=== PATIENT | female | born 1980 | race Caucasian/White ===

== ENCOUNTER 2016-04-16 13:20 | Outpatient (CLI) | payer OTHER ==
[~2016-04-16 13:20] MED LIST: PRENTAB26 PO
[2016-06-15] MEDS ORDERED: MTR600X PO (07:36)
== END 2016-04-16 14:05 | disposition home or self-care (01) ==
LOC: C.OPB 13:20 → C.LD 13:20 → C.OPB 14:05
PROVIDERS: ATTEND Obstetrics & Gynecology
DX: O99.89 Other specified diseases and conditions complicating pregnancy, childbirth and the puerperium (principal); R10.9 Unspecified abdominal pain; Z3A.32 32 weeks gestation of pregnancy

== ENCOUNTER → 2016-05-25 | Outpatient (CLI) | payer OTHER ==
[~2016-05-25] MED LIST changes: +CHOL100027 PO; +DOCU-94 PO; +MTR600X PO
== END | disposition home or self-care (01) ==
LOC: C.LAB 10:57
PROVIDERS: ATTEND Obstetrics & Gynecology
DX: Z01.812 Encounter for preprocedural laboratory examination (principal)

== ENCOUNTER → 2016-05-25 | Outpatient (CLI) | payer OTHER ==
[2016-05-25 12:11] LABS: BASO % 0.3 %; BASO ABS # 0.04 K/uL (0-0.2); COMPLETE YES; EOS % 0.7 %; HEMATOCRIT 37.4 % (37-47); IG% 2.7 %; LYMPH % 14.4 %; LYMPH ABS # 1.95 K/uL (1.2-3.4); MEAN CELL VOLUME 86.8 fL (80-100); MEAN CORPUSCULAR HEMOGLOBIN 30.9 pg (25-34); MEAN CORPUSCULAR HGB CONC 35.6 g/dl (32-36); MEAN PLATELET VOLUME 11.2 fL (7.4-10.4); MONO % 6.5 %; NEUT % 75.4 %; PLATELET COUNT 178 K/uL (130-400); RED BLOOD COUNT 4.31 M/uL (4.2-5.4); WHITE BLOOD COUNT 13.54 K/uL (4.8-10.8)
--- NOTE | 2016-08-12 07:19 | CODING QUERY NO DIAGNOSIS ---
TREATMENT RENDERED WITHOUT A DIAGNOSIS To promote full compliance with coding requirements relating to patient care, physician participation is requested in all cases of geometry professor uncertainty. Please assist us with providing a diagnosis/symptom for the test(s) below: A diagnosis/symptom was not documented on your Order. A valid diagnosis/symptom is required to bill all insurances. Please remember that we are unable to code a diagnosis of rule out, probable, possible, questionable, or suspected. Tests that require a diagnosis: DOS: 05/25/16 * TYPE/SCREEN PROFILE DIAGNOSIS: * CBC W/ AUTO DIFF DIAGNOSIS: Provider Signature: Date: Thank you Meena Shepard [facility] [employer] [facility] Once completed, please kindly fax back to [phone] For questions please call [phone]
== END | disposition home or self-care (01) ==
LOC: C.LAB 11:06 → EDSTATUS 06-08 09:44
PROVIDERS: ATTEND Obstetrics & Gynecology
DX: O32.1XX0 Maternal care for breech presentation, not applicable or unspecified (principal); Z3A.00 Weeks of gestation of pregnancy not specified

== ENCOUNTER 2016-06-13 00:02 | Inpatient (IN) | payer OTHER ==
[~2016-06-13] VITALS: Ht 167.6 cm; Wt 120.5 kg
[~2016-06-13 00:02] MED LIST changes: -CHOL100027 PO; -DOCU-94 PO; -MTR600X PO
[2016-06-13] MEDS ORDERED: LACTATED RINGER'S 1000ML 500 ML IV PRN ×2 (00:56→03:44)
[2016-06-13] MEDS ORDERED: OXYTOCIN 30 UNITS/500ML NSS IV PRN ×2 (01:00→13:15)
[2016-06-13] MEDS ORDERED: CHOL100027 PO (01:36)
[2016-06-13] MEDS ORDERED: DOCU-94 PO (01:36)
[2016-06-13 01:37] VITALS: Ht 167.6 cm; Wt 120.5 kg
--- NOTE | 2016-06-13 01:40 | HISTORY & PHYSICAL EXAMINATION ---
DATE OF ADMISSION: 06/13/2016 CHIEF COMPLAINT: Contractions and leakage of fluid. HISTORY OF PRESENT ILLNESS: The patient is a 35-year-old, G4, P1-0-2-1 at 40 weeks' and 3 days of gestation who has been feeling small amount of leakage of fluid versus vaginal discharge since noon yesterday. It was bloody mucousy at first and then she had small amount of leaking every time she uses the bathroom. She was not sure it was from the vagina. She started to feel contractions around the same time and they were irregular. They became regular for the last 2 hours , she has been feeling every 6 minutes and painful. She denies vaginal bleeding. She reports good movements. Her has been uncomplicated, except obesity class 2. PAST MEDICAL HISTORY: The patient denies any medical problems. PAST SURGICAL HISTORY: Tonsillectomy and dental surgery. MEDICATIONS: vitamins, Colace and vitamin D. ALLERGIES: No known drug allergies. SOCIAL HISTORY: The patient denies smoking, alcohol or drug use. GYNECOLOGIC HISTORY: The patient denies any history of STDs including Chlamydia, gonorrhea or herpes. OBSTETRIC HISTORY: The patient had full term spontaneous vaginal delivery of a male child in 2012. Weight was 8 pounds 6 ounces. She had 2 chemical pregnancies in 2014. This is her fourth . LABORATORIES: Blood type is A positive. Antibody screen negative. Urine culture negative. GC chlamydia cultures were negative. H\T\H was 13/40. Hepatitis B surface antigen negative. TSH normal, rubella immune. GBS culture was negative. PHYSICAL EXAMINATION: GENERAL: The patient is alert, oriented x3, not in acute distress. VITAL SIGNS: Her blood pressure is 121/68, temperature 97.8, pulse 89 and respirations 18. CARDIOVASCULAR: S1, S2, RRR. LUNGS: Clear to auscultation bilaterally. ABDOMEN: Soft, gravid, Juan A 8-9 pounds. EXTREMITIES: Nontender, no edema. PELVIC: AmniSure testing is positive. Cervix is 3-4 cm, 50%, -3 vertex, with amniotic bag was felt heart rate 130s, category 1. [place] contractions every 3-4 minutes. Bed side US: VERTEX, AFV normal, FHR 140's ASSESSMENT AND PLAN: The patient is a 35-year-old, G 4, P1-0-2-1 at 40 weeks' and 2 days of gestation; presenting with spontaneous rupture of membranes at term and contractions. Vital signs are stable, afebrile. GBS negative. heart rate reassuring. Plan is to admit her and start IV fluids. The patient desires and is expecting management for now; understands if there is no change within the next 2-3 hours recommend augmentation with Pitocin and she agreed with the plan. CESAR
[2016-06-13] MEDS ORDERED: EpHEDrine SULFATE INJ 50 MG/ML AMP ONE (02:04)
[2016-06-13] MEDS ORDERED: BUPIVACAINE 0.25% 30 ML VIAL ONE (02:04)
[2016-06-13] MEDS ORDERED: FENTANYL CITRATE INJ 50 MCG/1 ML 2 ML VIAL ONE (02:05)
[2016-06-13] MEDS ORDERED: FENTANYL 2MCG/ML ROPIV 1.25MG/ML 100ML BAG EPI ONE (02:05)
[2016-06-13] MEDS ORDERED: LACTATED RINGER'S 1000ML 1,000 ML IV PRN (02:13)
[2016-06-13 02:50] LABS: HEMATOCRIT 38.2 % (37-47); MEAN CELL VOLUME 88.6 fL (80-100); MEAN CORPUSCULAR HEMOGLOBIN 31.1 pg (25-34); MEAN CORPUSCULAR HGB CONC 35.1 g/dl (32-36); MEAN PLATELET VOLUME 11.3 fL (7.4-10.4); PLATELET COUNT 197 K/uL (130-400); RED BLOOD COUNT 4.31 M/uL (4.2-5.4); WHITE BLOOD COUNT 14.19 K/uL (4.8-10.8)
[2016-06-13] MEDS: LACTATED RINGER'S 1000ML 1,000 ML IV SCH ×3 (03:19→11:11)
[2016-06-13] MEDS ORDERED: NALOXONE HCL INJ 1 MG in SODIUM CHLORIDE 0.9% 1000ML 1,000 ML IV PRN (03:44)
[2016-06-13] MEDS ORDERED: DiphenhydrAMINE HCL 50 MG/ML VIAL IV PRN (03:45)
[2016-06-13] MEDS ORDERED: ONDANSETRON INJ 2 MG/ML 2 ML VIAL IV PRN (03:45)
[2016-06-13] MEDS ORDERED: EpHEDrine SULFATE INJ 50 MG/ML AMP IV PRN (03:45)
[2016-06-13] MEDS ORDERED: NALOXONE HCL INJ 0.4 MG/1 ML VIAL/CARP IV PRN (03:45)
[2016-06-13] MEDS ORDERED: NALBUPHINE HCL INJ 10 MG/ML AMP IV PRN (03:45)
[2016-06-13] MEDS: FENTANYL 2MCG/ML ROPIV 1.25MG/ML 100ML BAG EPI PRN ×2 (06:53→11:10)
[2016-06-13] MEDS ORDERED: D5W AND LACTATED RINGERS 1,000 ML IV SCH (11:45)
[2016-06-13] MEDS ORDERED: ACETAMINOPHEN/CODEINE 300/30MG TAB PO PRN (13:15)
[2016-06-13] MEDS ORDERED: ACETAMINOPHEN 325 MG TAB PO PRN (13:15)
[2016-06-13] MEDS ORDERED: MEASLES, MUMPS & RUBELLA VIRUS VIAL SQ. ONE (13:15)
[2016-06-13] MEDS ORDERED: SUPERCREAM 0.870 % 15GM JAR EXT PRN (13:15)
[2016-06-13] MEDS ORDERED: LANOLIN OINT EXT PRN ×2 (13:15)
[2016-06-13] MEDS ORDERED: HYDROCORTISONE ACETATE 25 MG SUPP PR PRN (13:15)
[2016-06-13] MEDS ORDERED: DIPHTHERIA/TETANUS/PERTUSSIS 0.5 ML SYR/VIAL IM. ONE (13:15)
[2016-06-13] MEDS ORDERED: BENZOCAINE 20% AER SPR 82.5 GM CAN EXT PRN (13:15)
--- NOTE | 2016-06-13 13:28 | DELIVERY SUMMARY ---
DATE OF OPERATION: 06/13/2016 TIME OF DELIVERY OF BABY: 12:24 p.m. TIME OF DELIVERY OF PLACENTA: 12:44 p.m. DETAILS OF DELIVERY: The patient was found to be fully dilated and desired to push. She pushed only once and delivered the head without difficulty. There was a nuchal cord around the neck x1 which was reduced while delivering the shoulders and baby was handed off to the mother where mouth and nose were suctioned. Cord was clamped x2 and cut. It was a 3-vessel cord. Cord blood was obtained. The vagina and perineum were checked for lacerations. There was a second degree perineal laceration in the posterior fourchette which was confirmed on rectal exam. Excellent sphincter tone was noted. Gloves were changed and the second degree laceration was repaired with 2-0 Vicryl in a running locked fashion bringing the vaginal mucosa together, the perineal body muscles and bulbocavernosus muscles together, skin in a subcuticular fashion. Excellent hemostasis was achieved. Rectal exam was repeated and found to be free of sutures and good sphincter tone. Gloves were changed and placenta was found to be in the vagina, delivered spontaneously intact and complete. Uterus was explored and found to be empty. Lower segment was cleared of all clots and debris. Fundus was firm. EBL was 300. Mother and baby tolerated the procedure well. Sponge, lap, needle count was correct x2. Baby was a viable female , Apgars 8/9. Weight is 3820 grams which is 8 pounds 6 ounces. No complications happened and I was present during the whole procedure. I attest to the content of the Intraoperative Record and any orders documented therein. Any exceptions are noted below. MTDD
[2016-06-13] MEDS: IBUPROFEN 600 MG TAB PO PRN ×3 (13:56→22:33)
--- NOTE | 2016-06-13 14:16 | Anesthesia Procedure Note ---
Anesthesia Epidural Removal Nt Date & Time Jun 13, 2016 at 14:15 Vital Signs Pain Intensity: 3.0 Notes Mental Status: alert / awake / arousable, participated in evaluation Nausea / Vomiting: adequately controlled Pain: adequately controlled Airway Patency, RR, SpO2: stable & adequate BP & HR: stable & adequate Hydration State: stable & adequate Neuraxial Anesthesia: was administered Anesthetic Complications: no major complications apparent, pt satisfied with anesthetic care Epidural: removed without complications, with tip intact Notes: Request from Pt for Epidural to be removed following delivery. Pt resting in bed. Epidural removed without complication with the tip intact. Pt tolerated well
[2016-06-13 16:25] VITALS: BP 109/63; PULSE 92; TEMP 36.9
[2016-06-13 19:00] VITALS: BP 125/78; PULSE 85; TEMP 36.6
[2016-06-13] MEDS: DOCUSATE SODIUM 100 MG CAP PO SCH (21:06)
[2016-06-13] MEDS: ACETAMINOPHEN/CODEINE 300/30MG TAB PO PRN (22:33)
[2016-06-13 23:35] VITALS: BP 127/77; PULSE 79; TEMP 36.4
[2016-06-14] MEDS: IBUPROFEN 600 MG TAB PO PRN ×5 (02:19→22:13)
[2016-06-14] MEDS: ACETAMINOPHEN/CODEINE 300/30MG TAB PO PRN ×2 (02:20→08:15)
[2016-06-14 04:30] VITALS: BP 98/53; PULSE 67; TEMP 36.4
[2016-06-14 07:50] VITALS: BP 104/62; PULSE 77; TEMP 36.5
[2016-06-14] MEDS: FERROUS SULFATE 325 MG TAB PO SCH (07:54)
[2016-06-14] MEDS: PRENATAL VITAMIN TAB PO SCH (07:54)
[2016-06-14] MEDS: DOCUSATE SODIUM 100 MG CAP PO SCH ×2 (07:54→19:35)
--- NOTE | 2016-06-14 09:55 | OB/GYN Progress Note ---
[facility] Progress Note Date of Service Jun 14, 2016. Subjective conversation w/ patient, physical exam Ambulation: ambulating normally Voiding: no voiding problems Passing Gas: Yes Diet Tolerance: Regular Diet Lochia: Moderate Feeding Type: Breast Feeding Review of Systems Constitutional: No chills, No fatigue, No fever, No problem reported, No sweats , No weakness, No weight loss Respiratory: No cough, No dyspnea at rest, No dyspnea on exertion, No hemoptysis, No problem reported, No shortness of breath, No sputum, No wheezing Cardiac: No PND, No chest pain, No claudication, No edema, No orthopnea, No palpitations, No problem reported Breast: No breast lump, No breast pain, No change in shape, No nipple discharge , No problem reported, No see HPI Abdomen: No GI bleeding, No constipation, No diarrhea, No nausea, No pain, No problem reported, No vomiting Female : No abnormal vaginal bleeding, No dysuria, No hematuria, No incontinence, No problem reported, No see HPI, No urinary frequency, No vaginal discharge Objective Vital Signs Date Time Temp Pulse Resp B/P Pulse Ox O2 Delivery O2 Flow Rate FiO2 06/14/16 04:30 36.4 67 18 98/53 Room Air 06/13/16 23:35 36.4 79 18 127/77 Room Air 06/13/16 23:35 Room Air 06/13/16 19:00 36.6 85 20 125/78 Room Air 06/13/16 16:25 36.9 92 20 109/63 Room Air 06/13/16 16:25 Room Air Physical Exam General Appearance: WELL-APPEARING, WD/WN Respiratory/Chest: chest non-tender, lungs clear, normal breath sounds, no respiratory distress, no accessory muscle use Cardiovascular: regular rate, rhythm, no edema, no gallop, no JVD, no murmur Abdomen: normal bowel sounds, non tender, soft, no organomegaly, no pulsatile mass Fundus: Firm Incision Description: Clean, Dry & Intact Extremities: normal range of motion, non-tender, normal inspection, no pedal edema, no calf tenderness Laboratory Results Last 24 Hours Test 06/14/16 07:04 Hemoglobin 11.4 g/dL Hematocrit 32.0 % Assessment and Plan Post- Day Number: 1 Continue Routine Care: PPD #1 pt doing well no complaints D/c tomorrow
[2016-06-14 16:00] VITALS: BP 115/70; PULSE 77; TEMP 36.8
[2016-06-14] MEDS ORDERED: BISACODYL 5 MG TABEC PO SCH (20:00)
[2016-06-14 23:45] VITALS: BP 116/70; PULSE 89; TEMP 36.4
[2016-06-15] MEDS: IBUPROFEN 600 MG TAB PO PRN (05:29)
[2016-06-15 06:15] LABS: HEMATOCRIT 32.4 % (37-47); MEAN CORPUSCULAR HEMOGLOBIN 31.3 pg (25-34); MEAN CORPUSCULAR HGB CONC 35.5 g/dl (32-36); MEAN PLATELET VOLUME 10.8 fL (7.4-10.4); PLATELET COUNT 171 K/uL (130-400); RED BLOOD COUNT 3.68 M/uL (4.2-5.4); WHITE BLOOD COUNT 15.31 K/uL (4.8-10.8)
[2016-06-15] MEDS ORDERED: BISACODYL 10 MG SUPP PR PRN (07:00)
[2016-06-15] MEDS ORDERED: MTR600X PO (07:36)
--- NOTE | 2016-06-15 07:36 | Discharge Instructions ---
Discharge Instructions Date of Service Jun 15, 2016. Admission Reason for Admission: Check Rupture Discharge Discharge Diagnosis / Problem: Vaginal Delivery Discharge Goals Goal(s): Routine recovery after delivery Medications Continue Dispensed Medications: supercream, dermaplast, tucks, lansinoh Activity Recommendations Activity Limitations: per Instructions/Follow-up section . Instructions / Follow-Up Instructions / Follow-Up ACTIVITY RECOMMENDATIONS: * Gradual return to full activity over the next 2-3 weeks. * No lifting - nothing heavier than baby over the next 2-3 weeks. * Do not engage in vigorous exercise, sexual activity or sports until cleared by your physician. * Do not drive or operate any motorized equipment until cleared by your physician. * You may shower/bathe daily. BREAST CARE: If you are not breast feeding: * Wear a supportive bra 24 hours a day for one to two weeks. * Avoid stimulating your breasts and nipples as much as possible during the first few weeks after delivery. * When taking a shower, have the warm water hit your back, not breasts. * When your breasts feel full, apply ice packs. Usually three to four times a day helps ease the discomfort. * Take a mild pain medication (Tylenol/Motrin) when you are uncomfortable. If breast feeding: * Use breast milk to lubricate nipples. Lansinoh cream may be used for sore nipples. You do not need to remove cream prior to breast feeding. If using a different brand of cream, check the label for directions regarding removal of cream prior to nursing. * Wear a supportive bra. * If having problems with breasts or breast feeding, call a baby registry sales consultant or your health care provider. EPISIOTOMY CARE: After delivery, if you have an episiotomy (stitches), the following steps will ease discomfort and aid healing. * For the first 24 hours after delivery, place ice packs next to your episiotomy to help reduce swelling. * After the first 24 hour-period, sitz baths, either portable or in the tub, are suggested. A shower with a shower arm sprayed over the episiotomy may be comforting. * Maribel care should be done after each voiding and bowel movement. Squirt warm water from a plastic bottle over the perineum (region of the body between the anus and urinary opening) and pat dry. * Use Dermoplast to ease discomfort. Shake container. [place] directly over the episiotomy. * Place a Tucks on a clean sanitary pad next to your episiotomy. OVER THE COUNTER MEDICATION: * For discomfort or pain, you may use Acetaminophen (Tylenol), Ibuprofen (Advil ), or Naproxen (Aleve) following the package directions. * For constipation you may use Colace following the package directions. SPECIAL CARE INSTRUCTIONS: When you are discharged from the hospital, it is important for you to follow the instructions listed below: * During the first week at home, you should be able to care for yourself and your baby. In addition, the usual light household activities are encouraged. * Limit your activities to the way you feel. Do not try to clean the house or move furniture. Be sensible. * If you actively engage in sports and have done so up until the time of your delivery, you may resume these activities as soon as you feel able. This may take up to one month or even longer. Use good judgment. * Continue to take your vitamins for at least six weeks after the of your baby. * Your diet need not be limited unless you were on a special diet before your delivery. Breast-feeding mothers need around 2500 calories per day and at least 64-80 ounces of fluid per day (8 to 10 glasses). * You should eat foods from the four major food groups. Crash diets or fad diets are to be avoided. Eating lean meats, fresh fruits and vegetables, low-fat dairy products, high fiber foods and a regular exercise program, will help you get back to your pre- weight without putting your health at risk. * Constipation is sometimes a problem after delivery. Take a mild laxative as needed. If breast feeding, Milk of Magnesia is acceptable to use. You may use a suppository or Fleets enema if no episiotomy. * A daily shower or tub bath is suggested. Be sure to thoroughly and gently dry the perineum. * A bloody vaginal discharge will usually continue until around four weeks post . A small amount of bleeding may continue for as long as six weeks. Vaginal discharge changes from the bright red bleeding after delivery to pink then brownish and finally yellowish-pink before becoming white and disappearing. * Bleeding may increase with activity. Your first period may come in 4-8 weeks. If you are breast feeding, your period may be delayed even longer. * [place] (sex) can begin whenever both you and your partner feel comfortable and do not have any form of genital infection. It is recommended that you wait until after your return appointment and discuss with your physician. If you have questions, please talk to your health care practitioner. A condom should be used to prevent infection and . * Foreplay, gentle intercourse and lubrication is very important the first several times to prevent pain. A water-based lubricant such as K-Y jelly or Astroglide may be used. * Tampons may be used six weeks after delivery. * Douching should be avoided for 6 weeks after delivery. * If you have RH negative blood and your baby is RH positive, you will receive RHOGAM by injection prior to discharge. The nurse will give you a card to keep with you that has the date and place that you received RHOGAM after delivery. * During your care, you had a Rubella screen done to check for the presence of rubella antibodies in your blood. If your test was negative, you will receive a Rubella vaccine prior to discharge. This vaccine may cause a fever, soreness at the injection site and flu-like symptoms. If these symptoms persist, notify your health care practitioner. is not advised for three months after a Rubella vaccine. There is a higher chance of having a baby with defects if conceived within three months of getting the vaccine. * If you were discharged 24 hours from delivery or before 48 hours: Visiting nurses will come to your home 48 hours after discharge to assess you and your baby. The visiting nurse will meet with you while you are in the hospital to arrange a time and get directions to your home. * Verbalizes understanding of car seat law as reviewed with patient nursing. * Car Seat hand-out given and reviewed with patient by nursing. * Shaken baby information reviewed with patient by nursing. Call you doctor if: * Heavy bleeding (saturating several pads an hour) or passing clots the size of your fist. * A fever >101 degrees F (38.3 degrees C) on two occasions four hours apart and/or chills. * Unusual pain in the pelvic or vaginal areas. * "Baby Blues" lasting longer than two weeks. If you have any questions or concerns, call your health care practitioner at . FOLLOW-UP VISIT: * Please call the office at to schedule a 6 week examination. It is important you keep this appointment. * It is important for you to make arrangements for either yearly or twice yearly check-ups thereafter. Current Hospital Diet Patient's current hospital diet: Regular OB Diet Discharge Diet Recommended Diet: Regular OB Diet Pending Studies Studies pending at discharge: no Medical Emergencies . Who to Call and When: Medical Emergencies: If at any time you feel your situation is an emergency, please call 911 immediately. . Non-Emergent Contact Non-Emergency issues call your: Primary Care Provider, Hand Bender . . "Provider Documentation" section prepared by Eric Nash. VTE Core Measure Inpt VTE Proph given/why not?: Treatment not indicated
--- NOTE | 2016-06-15 07:38 | OB/GYN Progress Note ---
[employer] Progress Note Date of Service Jun 15, 2016. Subjective conversation w/ patient, physical exam Ambulation: ambulating normally Voiding: no voiding problems Passing Gas: Yes Diet Tolerance: Regular Diet Lochia: Small Feeding Type: Bottle Feeding Pain: 03/30 Notes: Doing well, no concerns. Would like to go home today. Objective Vital Signs Date Time Temp Pulse Resp B/P Pulse Ox O2 Delivery O2 Flow Rate FiO2 06/14/16 23:45 Room Air 06/14/16 23:45 36.4 89 20 116/70 Room Air 06/14/16 16:00 36.8 77 18 115/70 Room Air 06/14/16 16:00 Room Air 06/14/16 07:50 36.5 77 18 104/62 Room Air 06/14/16 07:50 Room Air Physical Exam General Appearance: WELL-APPEARING Respiratory/Chest: chest non-tender, lungs clear Cardiovascular: regular rate, rhythm Abdomen: normal bowel sounds, soft Fundus: Firm Extremities: normal range of motion, non-tender Laboratory Results Last 24 Hours Test 06/15/16 05:27 White Blood Count 15.31 K/uL Red Blood Count 3.68 M/uL Hemoglobin 11.5 g/dL Hematocrit 32.4 % Mean Corpuscular Volume 88.0 fL Mean Corpuscular Hemoglobin 31.3 pg Mean Corpuscular Hemoglobin Concent 35.5 g/dl RDW Standard Deviation 45.4 fL RDW Coefficient of Variation 14.0 % Platelet Count 171 K/uL Mean Platelet Volume 10.8 fL Assessment and Plan Post- Day Number: 2 Continue Routine Care: -D/C home today -F/U in 6 weeks.
[2016-06-15 08:43] VITALS: BP 111/63; PULSE 82; TEMP 36.4
[2016-06-15] MEDS: PRENATAL VITAMIN TAB PO SCH (09:27)
[2016-06-15] MEDS: DOCUSATE SODIUM 100 MG CAP PO SCH (09:27)
[2016-06-15] MEDS: FERROUS SULFATE 325 MG TAB PO SCH (09:27)
[2016-06-15 10:27] VITALS: BP_DIAS 63; PULSE 82; TEMP 36.4
== END 2016-06-15 11:55 | disposition home or self-care (01) | DRG 775 ==
LOC: C.LD 00:02 → C.OPB 00:02 → C.LD 02:15 → C.OBG 16:41
PROVIDERS: ADMIT Obstetrics & Gynecology; ATTEND Obstetrics & Gynecology
PROC: 0KQM0ZZ Repair Perineum Muscle, Open Approach (ICD-10-PCS; principal; 2016-06-13)
PROC: 10E0XZZ Delivery of Products of Conception, External Approach (ICD-10-PCS; principal; 2016-06-13)
DX: O48.0 Post-term pregnancy (principal); Z68.41 Body mass index [BMI] 40.0-44.9, adult; O99.214 Obesity complicating childbirth; E66.01 Morbid (severe) obesity due to excess calories; O69.81X0 Labor and delivery complicated by cord around neck, without compression, not applicable or unspecified; O70.1 Second degree perineal laceration during delivery; Z37.0 Single live birth; Z3A.40 40 weeks gestation of pregnancy